=== PATIENT | female | born 1960 | race Caucasian/White ===

== ENCOUNTER 2018-01-18 12:15 | Emergency (ER) | payer OTHER ==
[~2018-01-18] VITALS: Ht 162.6 cm; Wt 127.3 kg
[~2018-01-18 12:15] MED LIST: ACTOS30 MG OR; ACTOS30 MG PO; ALEVE220 M1 OR; ANTI-FUNGAL12 TOP; ASPIRIN LOW81 M1 PO; ATROVENT INH0.5 MG IN; CELEBREX100 MG PO; CIPRO500 MG PO; CIPROFLOXACN500 MG PO; CLOTRIM/BETA EX; DEPO-MEDROL80 MG/ML IM; DIFLUCAN150 MG PO; FLEXERIL PO; GLIPIZIDE10 M2 PO; GLIPIZIDE5 M2 PO; GLYBURIDE5 MG PO; HUMULIN 70/30 SC; IBUPROFEN600 MG PO; INSULIN SY0.5 MG/38 SC; LANTUS100 MG/ML SC; LISINOPRIL10 MG PO; LISINOPRIL20 M1 PO; LISINOPRIL5 MG PO; MECLIZINE25 MG OR; MEDDOSEPAK PO; METFORMIN HCL500 M2 PO; METFORMIN500 M1 PO; METFORMIN500 M2 PO; METFORMIN500 MG PO; METRONIDAZOL500 MG PO; NAPROSYN500 MG PO; PRAVASTATIN SOD10 MG PO; PREDNISONE10 MG PO; QVAR80 MCG IN; ROCEPHIN 2250 MG/VIA IM; SERTRALINE50 MG PO; ULTRAM50 M1 PO; VENTOLIN HF1 IN; ZANTAC 150 PO; ZITHROMAX500 MG PO; ZYRTEC10 MG PO; [UNRECOGNIZED DRUG - CODE] IN
[2018-01-18] MEDS ORDERED: VOLTAREN1%GEL TOP (12:34)
[2018-01-18] MEDS ORDERED: MOTRIN400 MG PO (12:34)
[2018-01-18 14:26] VITALS: BP 133/80
== END 2018-01-18 14:44 | disposition home or self-care (01) | DRG 563 ==
LOC: ED 12:15
DX: S46.812A Strain of other muscles, fascia and tendons at shoulder and upper arm level, left arm, initial encounter (principal); M25.512 Pain in left shoulder; R20.0 Anesthesia of skin; W01.0XXA Fall on same level from slipping, tripping and stumbling without subsequent striking against object, initial encounter; Y93.01 Activity, walking, marching and hiking; Y92.009 Unspecified place in unspecified non-institutional (private) residence as the place of occurrence of the external cause

== ENCOUNTER 2022-06-18 11:19 | Emergency (ER) | payer OTHER ==
[~2022-06-18] VITALS: Ht 162.6 cm; Wt 110.0 kg
[~2022-06-18 11:19] MED LIST changes: +FISH OIL1000 MG PO; +GABAPENTIN100 MG PO; +HYDROCHLOROTH12.5 M1 PO; +IMODIUM2 MG PO; +JARDIANCE10 MG; +LISINOPRIL2.5 MG PO; +MOTRIN400 MG PO; +PROMETHAZINE HY25 M1 PO; +TRULICITY0.75 MG/0.; +VOLTAREN1%GEL TOP
[2022-06-18] MEDS ORDERED: NAPROXEN500 MG PO (14:17)
[2022-06-18 14:29] VITALS: BP 139/66
== END 2022-06-18 14:40 | disposition home or self-care (01) | DRG 563 ==
LOC: ED 11:19
DX: S93.602A Unspecified sprain of left foot, initial encounter (principal)